=== PATIENT | male | born 1950 | race Caucasian/White ===

== ENCOUNTER 2016-07-09 13:31 | Outpatient (CLI) | payer MEDICARE, OTHER | END 2016-07-09 13:32 | disposition home or self-care (01) | DX: Z79.899 Other long term (current) drug therapy (principal); L20.82 Flexural eczema ==

== ENCOUNTER 2016-08-02 13:01 | Outpatient (CLI) | payer MEDICARE, OTHER | END 2016-08-02 13:02 | disposition home or self-care (01) | DX: L20.82 Flexural eczema (principal); Z79.899 Other long term (current) drug therapy ==

== ENCOUNTER 2016-08-30 13:19 | Outpatient (CLI) | payer MEDICARE, OTHER | END 2016-08-30 13:20 | disposition home or self-care (01) | DX: L20.82 Flexural eczema (principal); Z79.899 Other long term (current) drug therapy ==

== ENCOUNTER 2018-04-07 13:21 | Emergency (ER) | payer MEDICARE, OTHER ==
[2018-04-07 13:38] VITALS: BP 146/83
[2018-04-07] MEDS: TETANUS/DIPHTHERIA/PERTUSSIS 0.5 ML SYRINGE IM ONE (14:43)
--- NOTE | 2018-04-07 14:45 | ED Physician Documentation ---
PD HPI LOWER EXT INJURY - Stated complaint Stated Complaint: R FOOT LAC - Chief complaint Chief Complaint: Wound - History obtained from History obtained from: Patient - History of Present Illness PD HPI LOW EXT INJURY LOCATION: Right, Foot Type of injury: Puncture wound Where injury occurred: Home Timing - onset: Today - Additional information Additional information: The patient is a 68-year-old male who presents with a puncture wound in the plantar aspect of his right foot. He was repairing a wire fence for chickens, when he stepped on a cut and of the wire, which penetrated his running shoe and penetrated his foot. His last tetanus booster was more than 10 years ago, and he is concerned about tetanus given the [place] location of his injury. Review of Systems Constitutional: denies: Fever Respiratory: denies: Dyspnea Skin: reports: Other (Puncture wound.). denies: Rash Musculoskeletal: reports: Extremity pain (right foot.) Neurologic: denies: Focal weakness, Numbness PD PAST MEDICAL HISTORY - Past Medical History Past Medical History: Yes Neuro: None Endocrine/Autoimmune: None HEENT: None Derm: Other - Past Surgical History Past Surgical History: No Derm: Skin cancer surgery - Present Medications Home Medications: Ambulatory Orders Medication Instructions Recorded Confirmed No Known Home Medications 04/07/18 04/07/18 - Allergies Allergies/Adverse Reactions: Allergies Allergy/AdvReac Type Severity Reaction Status Date / Time mupirocin [From Bactroban] Allergy Rash Verified 04/07/18 13:38 - Social History Does the pt smoke?: Yes Smoking Status: Current every day smoker Does the pt drink ETOH?: Yes ETOH Use: Liquor Does the pt have substance abuse?: No Substance Use and Type: Marijuana - Immunizations Immunizations are current?: No Immunizations: TDAP >10years/unknown - POLST Patient has POLST: No PD ED PE NORMAL - Vitals Vital signs reviewed: Yes (Mild systolic hypertension initially.) - General General: Alert and oriented X 3, Well developed/nourished - HEENT HEENT: Atraumatic - Respiratory Respiratory: No respiratory distress - Derm Derm: No rash - Extremities Extremities: Other (There is a small puncture wound noted on the plantar aspect of the right foot, near the heel. There is no swelling, erythema, or debris visualized within the wound. Distal neurovascular is intact.) - Neuro Neuro: Alert and oriented X 3, No motor deficit, No sensory deficit Results - Vitals Vitals: Oxygen O2 Source Room air PD MEDICAL DECISION MAKING - ED course Complexity details: considered differential, d/w patient ED course: The patient's presentation is significant for a puncture wound to the plantar aspect of the right foot. There is no current evidence of infection. Treatment in the emergency department included administration of tetanus booster. The area of the wound was cleaned, and antibiotic ointment and Band-Aid were applied. I discussed with him the expected course of healing, symptomatic treatment and potentially worrisome signs or symptoms that should prompt reevaluation. Departure - Departure Disposition: 01 Home, Self Care Clinical Impression: Puncture wound of plantar aspect of foot Qualifiers: Encounter type: initial encounter Laterality: right Qualified Code(s): S91.331A - Puncture wound without foreign body, right foot, initial encounter Condition: Stable Instructions: ED Wound Puncture Foot Follow-Up: Mil Lowery PA-C [Physician No Access] - Comments: Keep the wound area clean. You can use Tylenol or ibuprofen if needed for pain. Follow-up with your primary physician, or return to the emergency department, if you develop any sign of infection, or otherwise worsening symptoms. Discharge Date/Time: 04/07/18 14:48
== END 2018-04-07 14:48 | disposition home or self-care (01) ==
LOC: ED 13:21
DX: S91.331A Puncture wound without foreign body, right foot, initial encounter (principal); W26.8XXA Contact with other sharp object(s), not elsewhere classified, initial encounter; Y93.H3 Activity, building and construction; Y92.009 Unspecified place in unspecified non-institutional (private) residence as the place of occurrence of the external cause; F17.200 Nicotine dependence, unspecified, uncomplicated
CPT/HCPCS: 90471; 99282; 99283

== ENCOUNTER 2020-10-25 16:02 | Outpatient (CLI) | payer MEDICARE | END 2020-10-25 16:03 | disposition short-term general hospital (02) | LOC: EMS 16:02 | DX: R07.9 Chest pain, unspecified (principal) | CPT/HCPCS: A0425; A0427 ==

== ENCOUNTER 2020-11-04 12:26 | Outpatient (CLI) | payer MEDICARE ==
[2020-11-04 16:10] LABS: ALBUMIN 4.2 g/dL (3.2-5.5); ALBUMIN/GLOBULIN RATIO 1.2 (1.0-2.2); BILIRUBIN,TOTAL 0.9 mg/dL (0.2-1.0); CALCIUM 9.2 mg/dL (8.5-10.3); CREATININE 1.4 mg/dL (0.6-1.2); POTASSIUM 4.5 mmol/L (3.5-5.0); TOTAL PROTEIN 7.7 g/dL (6.7-8.2)
== END 2020-11-04 12:27 | disposition home or self-care (01) ==
LOC: LAB.S 12:26
PROVIDERS: ATTEND Nurse Practitioner Family
DX: I21.3 ST elevation (STEMI) myocardial infarction of unspecified site (principal)
CPT/HCPCS: 36415; 80053

== ENCOUNTER 2020-11-26 14:11 | Outpatient (CLI) | payer MEDICARE ==
[2020-11-26 20:04] LABS: CALCIUM 9.1 mg/dL (8.5-10.3); CREATININE 1.6 mg/dL (0.6-1.2); POTASSIUM 3.8 mmol/L (3.5-5.0)
== END 2020-11-26 14:12 | disposition home or self-care (01) ==
LOC: LAB.S 14:11
PROVIDERS: ATTEND Nurse Practitioner
DX: I11.0 Hypertensive heart disease with heart failure (principal); I50.20 Unspecified systolic (congestive) heart failure; I25.10 Atherosclerotic heart disease of native coronary artery without angina pectoris
CPT/HCPCS: 36415; 80048; 83880

== ENCOUNTER 2020-12-08 11:29 | Emergency (ER) | payer MEDICARE ==
--- NOTE | 2020-12-08 12:20 | ED Physician Documentation ---
PD HPI MALE - Stated complaint Stated Complaint: MALE - Chief complaint Chief Complaint: Abd Pain - History obtained from History obtained from: Patient - History of Present Illness Timing - onset: How many days ago (5) Timing - duration: Days (5) Timing - details: Abrupt onset (while having forceful BM subsequent to constipation for several days.), Still present (worsening the past couple days, with feeling of inflammation, urgency for BM at rectum. Pain with attempt BM.) Associated symptoms: Other (feeling of urgency/pressure for BM, with just small amount of stools out.). No: Dysuria, Urinary frequency, Back pain Similar symptoms before: Has not had sx before Recently seen: Clinic (Walk In few days ago, with digital exam very tender, treated with some suppository and stool softener (little red pills). Told to follow up for colnoscopy. He called surgery office and next appt for follow up is not for couple weeks. Pain even worse today, so here.) Review of Systems Constitutional: denies: Fever, Chills Nose: denies: Rhinorrhea / runny nose, Congestion Throat: denies: Sore throat Cardiac: denies: Chest pain / pressure Respiratory: denies: Dyspnea, Cough GI: reports: Constipation. denies: Abdominal Pain, Nausea, Vomiting, Diarrhea : denies: Dysuria, Frequency Skin: denies: Rash Neurologic: denies: Generalized weakness, Near syncope PD PAST MEDICAL HISTORY - Past Medical History Cardiovascular: [place] (a month ago) Neuro: None Endocrine/Autoimmune: None GI: None HEENT: None Derm: Other - Past Surgical History Past Surgical History: No Derm: Skin cancer surgery - Present Medications Home Medications: Ambulatory Orders Medication Instructions Recorded Confirmed Amox/Clav 875/125 [Augmentin] 1 each PO Q12H #10 tablet 12/08/20 Mesalamine 1,000 mg RC DAILY #5 supp.rect 12/08/20 oxyCODONE [Roxicodone] 5 mg PO Q4-6H PRN #10 tablet 12/08/20 polyethylene glycoL 3350 [Miralax] 17 gm PO DAILY PRN #1 bottle 12/08/20 - Allergies Allergies/Adverse Reactions: Allergies Allergy/AdvReac Type Severity Reaction Status Date / Time mupirocin [From Bactroban] Allergy Rash Verified 12/08/20 11:41 - Social History Does the pt smoke?: Yes Smoking Status: Current every day smoker Does the pt drink ETOH?: Yes Does the pt have substance abuse?: No - Immunizations Immunizations are current?: No Immunizations: TDAP >10years/unknown - POLST Patient has POLST: No PD ED PE NORMAL - Vitals Vital signs reviewed: Yes - General General: Alert and oriented X 3, Well developed/nourished, Other (appears in pain and somewhat anxious. ) - Neck Neck: Supple, no meningeal sign, No adenopathy - Cardiac Cardiac: RRR, No murmur - Respiratory Respiratory: Clear bilaterally - Abdomen Abdomen: Normal bowel sounds, Soft, Non tender - Male Male : Deferred - Rectal Rectal: Other (normal external exam. Anoscope used to examine rectally and no hemorrhoids, no obvious fissures. There is inflammation and swelling in rectum. No mucous nor purulence. ) - Back Back: No CVA TTP - Derm Derm: Normal color, No rash Results - Vitals Vitals: Vital Signs - 24 hr 12/08/20 12/08/20 11:34 14:04 Temperature 36.5 C 37.0 C Heart Rate 88 74 Respiratory 16 12 Rate Blood Pressure 148/69 H 112/71 O2 Saturation 99 99 Oxygen O2 Source Room air - Labs Labs: Laboratory Tests 12/08/20 12/08/20 12/08/20 12:24 12:24 12:24 WBC 7.4 RBC 4.13 L Hgb 13.1 L Hct 38.2 L MCV 92.5 MCH 31.7 H MCHC 34.3 RDW 12.7 Plt Count 193 MPV 10.5 Neut # (Auto) 4.3 Lymph # (Auto) 1.2 L [place] # (Auto) 0.8 Eos # (Auto) 1.0 H Baso # (Auto) 0.0 Absolute Nucleated RBC 0.00 Nucleated RBC % 0.0 Manual Slide Review Indicated RBC Morph Micro Appear 1+ ANISOCYTOSIS ESR PT INR Sodium 135 Potassium 4.3 Chloride 102 Carbon Dioxide 23 Anion Gap 10.0 BUN 32 H Creatinine 1.5 H Estimated GFR (MDRD) 46 L Glucose 124 H Calcium 9.6 Blood Type B POSITIVE Antibody Screen NEGATIVE 12/08/20 12/08/20 12:24 12:30 WBC RBC Hgb Hct MCV MCH MCHC RDW Plt Count MPV Neut # (Auto) Lymph # (Auto) [place] # (Auto) Eos # (Auto) Baso # (Auto) Absolute Nucleated RBC Nucleated RBC % Manual Slide Review RBC Morph Micro Appear ESR 46 H PT 12.2 INR 1.1 Sodium Potassium Chloride Carbon Dioxide Anion Gap BUN Creatinine Estimated GFR (MDRD) Glucose Calcium Blood Type Antibody Screen - Rads (name of study) abd/pelvic CT Radiology: Prelim report reviewed (no local inflammastion, swelling, abscess. No acute process. ), See rad report Procedures - General procedure General procedure: Anoscopy in ER showing normal anal sphincter, no hemorrhoids. Marked tenderness. Swelling and inflammation circumferentially in rectal area. No exudate. No stool encountered to length of anoscope. PD MEDICAL DECISION MAKING - ED course Complexity details: re-evaluated patient (Givent he degree of tenderness at rectum, with some general swelling/redness, I presume some proctitis. No history of UC/IBD, so likely local process sequalae to anal fissure from constipation. ), considered differential (had onset pain with large BM, with some blood around stool. Continued with pain and worsening pain in rectum and with BMs. ), d/w patient Departure - Departure Disposition: 01 Home, Self Care Clinical Impression: Rectal pain, Acute proctitis Constipation Qualifiers: Constipation type: unspecified constipation type Qualified Code(s): K59.00 - Constipation, unspecified Condition: Stable Record reviewed to determine appropriate education?: Yes Follow-Up: CHASE TAVARES ARNP [Primary Care Provider] - Nico Jeffries MD [Provider Admit Priv/Credential] - Prescriptions: Amox/Clav 875/125 [Augmentin] 1 each PO Q12H #10 tablet Mesalamine 1,000 mg RC DAILY #5 supp.rect polyethylene glycoL 3350 [Miralax] 17 gm PO DAILY PRN #1 bottle PRN Reason: Constipation oxyCODONE [Roxicodone] 5 mg PO Q4-6H PRN #10 tablet PRN Reason: Pain Comments: Your CT scan did not show any local abscesses or masses or tumors. No signs of diverticulitis or colitis in the sigmoid or intestine. There was some stool still present in the sigmoid area. My view on endoscopy showed inflammation through the rectal tissue generally without any hemorrhoids or local ulcerations. We can presume this is either some inflammatory process or possibly local infection in the area given the degree of pain. You can treat this with anti-inflammatories in the area as a suppository (mesalamine). Also Augmentin antibiotic orally over the next several days. You can continue with the previous stool softener. Add MiraLAX powder in water 2-3 times daily for the next few days as well, to help soften the stool output more. Tylenol every 4-6 hours if needed for pain, or oxycodone if needed for worse pain. You can follow-up with general surgery for evaluation if not improved over the next few days, call for an appointment. Follow-up with your primary care or return to the ER if worsening.
[2020-12-08 12:30] LABS: BASOPHILS % (AUTO) 0.5 %; HCT - HEMATOCRIT 38.2 % (42.0-52.0); HGB - HEMOGLOBIN 13.1 g/dL (14.0-18.0); LYMPHOCYTES # (AUTO) 1.2 10^3/uL (1.5-3.5); MEAN CORPUSCULAR HEMOGLOBIN 31.7 pg (27.0-31.0); MEAN CORPUSCULAR HGB CONC 34.3 g/dL (32.0-36.0); MEAN CORPUSCULAR VOLUME 92.5 fL (80.0-94.0); MEAN PLATELET VOLUME 10.5 fL (7.4-11.4); MONOCYTES # (AUTO) 0.8 10^3/uL (0.0-1.0); MONOCYTES % (AUTO) 10.6 %; NEUTROPHILS # (AUTO) 4.3 10^3/uL (1.5-6.6); NEUTROPHILS % (AUTO) 58.6 %; PLT - PLATELET COUNT 193 10^3/uL (130-450); RED BLOOD COUNT 4.13 10^6/uL (4.70-6.10); RED CELL DISTRIBUTION WIDTH 12.7 % (12.0-15.0); WHITE BLOOD COUNT 7.4 x10^3/uL (4.8-10.8)
[2020-12-08 12:31] LABS: SLIDE REVIEW? Indicated
[2020-12-08 12:36] LABS: INR 1.1 (0.8-1.2); PT - PROTHROMBIN TIME 12.2 secs (9.9-12.6)
[2020-12-08 12:39] LABS: CALCIUM 9.6 mg/dL (8.5-10.3); CREATININE 1.5 mg/dL (0.6-1.2); POTASSIUM 4.3 mmol/L (3.5-5.0)
[2020-12-08 12:48] LABS: RBC MORPHOLOGY (MULTIPLE) 1+ ANISOCYTOSIS (NORMAL)
[2020-12-08] MEDS ORDERED: SODIUM CHLORIDE 0.9% 1,000 ML IV STA (12:52)
[2020-12-08] MEDS ORDERED: KETOROLAC 30 MG/ML VIAL IVP STA (12:52)
[2020-12-08] MEDS ORDERED: HYDROmorphone 1 MG/ML CARPUJECT IVP STA ×2 (12:52→14:26)
[2020-12-08] MEDS ORDERED: IOPAMIDOL-300 50 ML VIAL ONE (13:11)
--- NOTE | 2020-12-08 13:58 | CT Report ---
PROCEDURE: Abdomen/Pelvis W INDICATIONS: rectal pain for a week; feeling of swelling. CONTRAST: IV CONTRAST: Isovue 300 ml: 100 PO CONTRAST: *NO PO CONTRAST TECHNIQUE: After the administration of IV contrast, 5 mm thick sections acquired from the diaphragms to the symp hysis. 5 mm thick coronal and sagittal reformats were acquired. For radiation dose reduction, the f ollowing was used: automated exposure control, adjustment of mA and/or kV according to patient size. COMPARISON: Correlation is made with prior pelvis and lumbar spine CT examinations, and 01/24/2016 FINDINGS: Image quality: Excellent. ABDOMEN: Lung bases: Lung bases are clear. Heart size is normal. An apparent LAD stent can be seen. Solid organs: Liver and spleen are normal in size and enhancement. An accessory splenule is incide ntally noted along the hilum of the primary spleen. Gallbladder wall does not appear thickened. Biliary system is non dilated. Pancreas enhances normally. No adrenal nodules. Kidneys demonstrate normal size and enhancement, without hydronephrosis. At the superior pole of the left kidney, there is a simple appearing moderate in density cyst seen th at measures 2.3 cm. Peritoneum and bowel: In this patient with this given history, scrutiny is given to the rectum and i n the distal colon. No significant focal thickening or masses can be seen. Bowel loops demonstrate no rmal wall thickness and caliber. No free fluid or air. A normal appendix is incidentally noted. Di verticulosis can be seen, without linwood findings of active diverticulitis. Nodes and vessels: No retroperitoneal or mesenteric adenopathy by size criteria. Aorta and inferior vena cava are normal in size. Miscellaneous: No ventral hernias. PELVIS: Genitourinary: Bladder wall thickness is normal. Miscellaneous: A fat-containing left inguinal hernia is seen. No enlarged inguinal or pelvic lymph n odes are seen. Bones: No suspicious bony lesions. No vertebral body compression fractures. IMPRESSION: Normal-appearing rectum and distal colon. Given the patient's symptoms, please consider a dedicated lower endoscopy, when clinically appropriat e. Incidental note is made of: Apparent LAD stent Accessory splenule Simple appearing left renal cyst Normal appendix Diverticulosis is seen, yet without findings of active diverticulitis. Mild fat-containing left inguinal hernia Reviewed by: Abhishek Vazquez MD on 12/08/2020 12:57 PM AKDT Approved by: Abhishek Vazquez MD on 12/08/2020 12:57 PM FRANCES Station ID: [id number]
[2020-12-08] MEDS ORDERED: IOPAMIDOL-300 50 ML VIAL IVP ONE (14:38)
[2020-12-08] MEDS ORDERED: CHERRY SYRUP 10 ML UDC PO ONE (15:19)
[2020-12-08] MEDS ORDERED: DEXAMETHASONE 10 MG/ML VIAL PO STA (15:19)
[2020-12-08] MEDS ORDERED: GLYCERIN ADULT SUPP PR STA (15:19)
[2020-12-08] MEDS ORDERED: AMOX/CLAV 875 MG/125 MG TABLET PO STA (15:20)
[2020-12-08 17:15] VITALS: BP 105/63
== END 2020-12-08 16:57 | disposition home or self-care (01) ==
LOC: ED 11:29
DX: K62.89 Other specified diseases of anus and rectum (principal); F17.200 Nicotine dependence, unspecified, uncomplicated
CPT/HCPCS: 36415; 46600; 74177; 80048; 85025; 85610; 85651; 86850; 86900; 86901; 96374; 96375; 96376; 99284; A9270; J1170; Q9967

== ENCOUNTER 2020-12-10 15:10 | Outpatient (CLI) | payer MEDICARE ==
[2020-12-10 20:06] LABS: CALCIUM 9.2 mg/dL (8.5-10.3); CREATININE 1.6 mg/dL (0.6-1.2); POTASSIUM 4.3 mmol/L (3.5-5.0)
== END 2020-12-10 15:11 | disposition home or self-care (01) ==
LOC: LAB.S 15:10
PROVIDERS: ATTEND Nurse Practitioner
DX: I50.20 Unspecified systolic (congestive) heart failure (principal)
CPT/HCPCS: 36415; 80048

== ENCOUNTER 2021-02-13 10:32 | Outpatient (CLI) | payer MEDICARE ==
[2021-02-13 16:28] LABS: BUN - BLOOD UREA NITROGEN 18 mg/dL (6-20); CALCIUM 9.1 mg/dL (8.5-10.3); CARBON DIOXIDE - CO2 25 mmol/L (21-32); CHLORIDE 111 mmol/L (101-111); CHOL/HDL RATIO 3.1 (<5.0); CHOLESTEROL 133 mg/dL; CREATININE 1.2 mg/dL (0.6-1.2); GFR - MDRD 60 (>89); GLUCOSE 113 mg/dL (70-100); HDL CHOLESTEROL 43 mg/dL; LDL CHOLESTEROL,CALCULATED 76 mg/dL; LDL/HDL RATIO 1.8 (<3.6); SODIUM 143 mmol/L (135-145); TRIGLYCERIDES 68 mg/dL; VLDL CHOLESTEROL 14 mg/dL
== END 2021-02-13 10:33 | disposition home or self-care (01) ==
LOC: LAB.S 10:32
PROVIDERS: ATTEND Nurse Practitioner Family
DX: I21.3 ST elevation (STEMI) myocardial infarction of unspecified site (principal); I11.0 Hypertensive heart disease with heart failure; E78.5 Hyperlipidemia, unspecified; I50.20 Unspecified systolic (congestive) heart failure; I25.10 Atherosclerotic heart disease of native coronary artery without angina pectoris
CPT/HCPCS: 36415; 80048; 80061; 83721; 83880

== ENCOUNTER 2021-02-16 18:39 | Outpatient (CLI) | payer MEDICARE | END 2021-02-16 18:40 | disposition home or self-care (01) | LOC: COV 18:39 | PROVIDERS: ATTEND Internal Medicine Gastroenterology | DX: Z01.812 Encounter for preprocedural laboratory examination (principal); K62.89 Other specified diseases of anus and rectum; K60.2 Anal fissure, unspecified; Z20.822 Contact with and (suspected) exposure to COVID-19 ==

== ENCOUNTER 2021-02-19 14:04 | Outpatient (CLI) | payer MEDICARE | END 2021-02-19 14:05 | disposition EMS.NT | LOC: EMS 14:04 | DX: K62.89 Other specified diseases of anus and rectum (principal) ==

== ENCOUNTER 2021-02-19 15:12 | Emergency (ER) | payer MEDICARE ==
[2021-02-19 16:59] LABS: BASOPHILS % (AUTO) 0.5 %; EOSINOPHILS # (AUTO) 0.2 10^3/uL (0.0-0.7); EOSINOPHILS % (AUTO) 2.3 %; HCT - HEMATOCRIT 32.9 % (42.0-52.0); HGB - HEMOGLOBIN 10.9 g/dL (14.0-18.0); LYMPHOCYTES # (AUTO) 1.5 10^3/uL (1.5-3.5); LYMPHOCYTES % (AUTO) 23.3 %; MEAN CORPUSCULAR HGB CONC 33.1 g/dL (32.0-36.0); MEAN CORPUSCULAR VOLUME 96.5 fL (80.0-94.0); MEAN PLATELET VOLUME 10.7 fL (7.4-11.4); MONOCYTES # (AUTO) 0.7 10^3/uL (0.0-1.0); MONOCYTES % (AUTO) 11.6 %; NEUTROPHILS % (AUTO) 62.1 %; PLT - PLATELET COUNT 159 10^3/uL (130-450); RED BLOOD COUNT 3.41 10^6/uL (4.70-6.10); RED CELL DISTRIBUTION WIDTH 15.6 % (12.0-15.0); WHITE BLOOD COUNT 6.4 x10^3/uL (4.8-10.8)
[2021-02-19 17:03] LABS: INR 1.1 (0.8-1.2); PT - PROTHROMBIN TIME 12.1 secs (9.9-12.6)
[2021-02-19 17:09] LABS: ALBUMIN 4.3 g/dL (3.2-5.5); ALBUMIN/GLOBULIN RATIO 1.4 (1.0-2.2); BILIRUBIN,TOTAL 0.8 mg/dL (0.2-1.0); CALCIUM 9.4 mg/dL (8.5-10.3); CREATININE 1.2 mg/dL (0.6-1.2); POTASSIUM 4.3 mmol/L (3.5-5.0); TOTAL PROTEIN 7.3 g/dL (6.7-8.2)
[2021-02-19] MEDS ORDERED: MORPHINE 2 MG/ML CARPUJECT IVP STA (17:36)
[2021-02-19] MEDS ORDERED: SODIUM CHLORIDE 0.9% 1,000 ML IV STA (17:36)
[2021-02-19] MEDS ORDERED: ONDANSETRON 4 MG/2 ML VIAL IVP STA (17:36)
[2021-02-19] MEDS ORDERED: IOVERSOL 320 100 ML VIAL IVP ONE ×2 (17:46→21:28)
--- NOTE | 2021-02-19 18:31 | CT Report ---
PROCEDURE: Abdomen/Pelvis W INDICATIONS: Abd and rectal pain after sigmodoscopy yesterday CONTRAST: IV CONTRAST: Optiray 320 ml: 100 PO CONTRAST: *NO PO CONTRAST TECHNIQUE: After the administration of intravenous contrast, 5 mm thick sections acquired from the diaphragms to the symphysis. 5 mm thick coronal and sagittal reformats were acquired. For radiation dose reducti on, the following was used: automated exposure control, adjustment of mA and/or kV according to ema ent size. COMPARISON: 12/08/2020 FINDINGS: Image quality: Excellent. ABDOMEN: Lung bases: Lung bases are clear. Heart size is normal. Probable LAD stent is not included on today 's images. Eventration of the left hemidiaphragm. Solid organs: Liver and spleen are normal in size and enhancement. Gallbladder is unremarkable Awais iary system is non dilated. Pancreas enhances normally. No adrenal nodules. Kidneys demonstrate no rmal size and enhancement, without hydronephrosis. Peritoneum and bowel: Bowel loops demonstrate normal wall thickness and caliber. No free fluid or a ir. Nodes and vessels: No retroperitoneal or mesenteric adenopathy by size criteria. Aorta and inferior vena cava are normal in size. Miscellaneous: No ventral hernias. PELVIS: Genitourinary: Bladder wall thickness is normal. Miscellaneous: No inguinal hernias or adenopathy. Bones: No suspicious bony lesions. No vertebral body compression fractures. Lumbar degenerative ch jalen. Severe canal stenosis at L3-L4. IMPRESSION: 1. No evidence of acute abdominal process. No free air post sigmoidoscopy. 2. Incidental note made of severe canal stenosis at L3-L4. Reviewed by: Siddhartha Roberts MD on 02/19/2021 6:30 PM PDT Approved by: Siddhartha Roberts MD on 02/19/2021 6:30 PM PDT Station ID: [id number]
--- NOTE | 2021-02-19 19:38 | ED Physician Documentation ---
PD HPI GI BLEED - Stated complaint Stated Complaint: RECTAL PX - Chief complaint Chief Complaint: Abd Pain - History obtained from History obtained from: Patient - Additional information Additional information: Patient is a 71-year-old male presenting to the emergency department with rectal pain. Reports rectal pain ongoing x3 months. States has been seen by primary care and gastroenterology for this issue. Yesterday had sigmoidoscopy done which was generally benign. Reports increasing pain since the procedure.States pain is exacerbated by passage of stool.Ports that he took Percocet prior to arrival with minimal relief. Review of Systems Constitutional: denies: Fever, Chills Eyes: denies: Loss of vision Ears: denies: Loss of hearing Cardiac: denies: Chest pain / pressure Respiratory: denies: Dyspnea GI: reports: Other (Rectal pain) : denies: Dysuria Skin: denies: Rash Musculoskeletal: denies: Neck pain Neurologic: denies: Generalized weakness Psychiatric: denies: Depressed Endocrine: denies: Polydypsia Immunocompromised: denies: Immunocompromised PD PAST MEDICAL HISTORY - Past Medical History Past Medical History: Yes Cardiovascular: [place] Neuro: None Endocrine/Autoimmune: None GI: None HEENT: None Derm: Other - Past Surgical History Past Surgical History: No Derm: Skin cancer surgery - Present Medications Home Medications: Ambulatory Orders Medication Instructions Recorded Confirmed Amox/Clav 875/125 [Augmentin] 1 each PO Q12H #10 tablet 12/08/20 Mesalamine 1,000 mg RC DAILY #5 supp.rect 12/08/20 oxyCODONE [Roxicodone] 5 mg PO Q4-6H PRN #10 tablet 12/08/20 polyethylene glycoL 3350 [Miralax] 17 gm PO DAILY PRN #1 bottle 12/08/20 - Allergies Allergies/Adverse Reactions: Allergies Allergy/AdvReac Type Severity Reaction Status Date / Time No Known Drug Allergies Allergy Verified 02/19/21 15:18 - Social History Does the pt smoke?: Yes Smoking Status: Current every day smoker Does the pt drink ETOH?: Yes Does the pt have substance abuse?: No - Immunizations Immunizations are current?: No Immunizations: TDAP >10years/unknown - POLST Patient has POLST: No PD ED PE NORMAL - General General: Alert and oriented X 3 - HEENT HEENT: Atraumatic - Neck Neck: Supple, no meningeal sign - Cardiac Cardiac: RRR - Respiratory Respiratory: No respiratory distress - Abdomen Abdomen: Normal bowel sounds, Non tender, Non distended - Male Male : Deferred PD ED PE EXPANDED - Rectal Rectal: Heme Occult Pos - QC +, Hemorrhoid, Normal Tone, Urban Design Consultant present, Other (Rectum is exquisitely tender to any manipulation). No: Fissure Results - Vitals Vitals: Vital Signs - 24 hr 02/19/21 15:18 Temperature 36 C L Heart Rate 86 Respiratory 22 Rate Blood Pressure 129/75 O2 Saturation 95 Oxygen O2 Source Room air - Labs Labs: Microbiology 02/19/21 19:16 Occult Blood - Final Stool Laboratory Tests 02/19/21 02/19/21 02/19/21 16:51 16:51 16:51 WBC 6.4 RBC 3.41 L Hgb 10.9 L Hct 32.9 L MCV 96.5 H MCH 32.0 H MCHC 33.1 RDW 15.6 H Plt Count 159 MPV 10.7 Neut # (Auto) 4.0 Lymph # (Auto) 1.5 [place] # (Auto) 0.7 Eos # (Auto) 0.2 Baso # (Auto) 0.0 Absolute Nucleated RBC 0.00 Nucleated RBC % 0.0 PT 12.1 INR 1.1 Sodium 142 Potassium 4.3 Chloride 109 Carbon Dioxide 27 Anion Gap 6.0 BUN 20 Creatinine 1.2 Estimated GFR (MDRD) 59 L Glucose 113 H Calcium 9.4 Total Bilirubin 0.8 AST 35 ALT 52 Alkaline Phosphatase 106 Total Protein 7.3 Albumin 4.3 Globulin 3.0 Albumin/Globulin Ratio 1.4 Lipase 35 PD MEDICAL DECISION MAKING - ED course Complexity details: reviewed results, d/w patient ED course: Patient is 71-year-old male presenting to the emergency department with complaint of 3 months of persistent rectal pain. Patient has been seen in this facility before for similar symptoms in the past. Additionally has been following with gastroenterology and had sigmoidoscopy performed yesterday. Patient had some distress on arrival to the emergency department and was given dose of pain medication. His physical exam however was generally reassuring. Given his recent instrumentation I did elect to obtain labs which demonstrated a stable low level anemia. CT scan of his abdomen pelvis was benign. Rectal exam performed with assistant professor of life sciences present demonstrated a relatively benign exam with a single nonthrombosed external hemorrhoid as well as exquisite tenderness to any rectal manipulation. Guaiac was weakly positive however this is likely secondary to his recent sigmoidoscopy. I had a long detailed discussion with the patient about all of these findings. At this time I will discharge for continued follow- up with primary care and gastroenterology as needed. Otherwise clear return precautions and follow-up instructions were given prior to discharge. Departure - Departure Disposition: 01 Home, Self Care Clinical Impression: Rectal pain, chronic Condition: Good Instructions: Abdominal Pain Comments: Thank you for allowing us to care for you today at [facility] All the tests performed in the emergency department today were very reassuring. I am sorry that you are having this persistent pain. I would like you to follow- up with your primary care doctor as well as with your primer supervisor as soon as possible. If it anytime you have any new or worsening symptoms or further concerns you are always welcome to return to the emergency department.
[2021-02-19 20:12] VITALS: BP 114/83
== END 2021-02-19 20:14 | disposition home or self-care (01) ==
LOC: ED 15:12
DX: K62.89 Other specified diseases of anus and rectum (principal); G89.29 Other chronic pain; F17.200 Nicotine dependence, unspecified, uncomplicated
CPT/HCPCS: 36415; 74177; 80053; 82272; 83690; 85025; 85610; 96374; 99282; 99284; Q9967

== ENCOUNTER 2021-02-25 15:41 | Outpatient (CLI) | payer MEDICARE ==
[2021-02-25] MEDS ORDERED: GADOBUTROL 10 MMOL/10 ML VIAL ONE (15:57)
--- NOTE | 2021-02-25 17:58 | MRI Report ---
PROCEDURE: Pelvis W/WO INDICATIONS: ANAL OR RECTAL PAIN CONTRAST: IV CONTRAST: Gadavist ml: 8.6 TECHNIQUE: Coronal ultra fast SE, sagittal breath-hold T2 FSE; axial T1 FSE with and without fat saturation thro ugh the pelvis. Optional long- and short-axis uterine nonbreath-hold T2 FSE through the uterus. Sag ittal or axial dynamic ultra fast GE during administration of contrast. Post-contrast axial or coron al ultra fast GE / 2-D spoiled GE with fat saturation from the iliac crests to the symphysis. Option al diffusion weighted imaging and ADC may be performed. COMPARISON: CT abdomen and pelvis dated 02/19/2021 FINDINGS: Image quality: Diagnostic Urinary system: Bladder wall is normal in thickness. Distal ureters are non distended. Urethra candie ears normal in morphology. No abnormal enhancement identified. Nodes and vessels: No pelvic or inguinal adenopathy by size criteria. Iliac vessels are normal in s ize. Bowel and peritoneum: No pathologic free pelvic fluid. Inferior colon and small bowel loops are nor mal in caliber. Soft tissues: No inguinal hernias. No findings of pelvic floor incompetence in the absence of provo cation. No pelvic adenopathy. No suspicious signal abnormalities or abnormal enhancement noted in th e region of the distal sigmoid colon and rectum or anus. No inflammatory changes noted in the subcuta neous soft tissues surrounding the rectum and anus. No abnormal fluid collection seen. Bones: Marrow demonstrates normal overall signal. Degenerative changes of the bilateral hips with s ubchondral cystic changes over the superior acetabulum on the left. IMPRESSION: MRI pelvis without acute abnormalities. Specifically, no abnormalities identified in the region of th e rectum/anus to explain patient's rectal/anal pain. Reviewed by: Lui Coy MD on 02/25/2021 5:57 PM PST Approved by: Lui Coy MD on 02/25/2021 5:57 PM PST Station ID: [id number]
[2021-02-26] MEDS ORDERED: GADOBUTROL 10 MMOL/10 ML VIAL IVP ONE (08:10)
== END 2021-02-25 15:42 | disposition home or self-care (01) ==
LOC: DI 15:41
PROVIDERS: ATTEND Internal Medicine Gastroenterology
DX: K62.89 Other specified diseases of anus and rectum (principal); K60.2 Anal fissure, unspecified
CPT/HCPCS: 72197; A9585

== ENCOUNTER 2021-03-31 16:30 | Outpatient (CLI) | payer MEDICARE ==
[2021-03-31 20:29] LABS: CALCIUM 9.3 mg/dL (8.5-10.3); CREATININE 1.2 mg/dL (0.6-1.2); POTASSIUM 4.1 mmol/L (3.5-5.0)
== END 2021-03-31 16:31 | disposition home or self-care (01) ==
LOC: LAB.S 16:30
PROVIDERS: ATTEND Internal Medicine Interventional Cardiology
DX: I50.20 Unspecified systolic (congestive) heart failure (principal); I25.10 Atherosclerotic heart disease of native coronary artery without angina pectoris
CPT/HCPCS: 36415; 80048

== ENCOUNTER 2021-06-05 14:16 | Emergency (ER) | payer MEDICARE ==
[2021-06-05 14:53] LABS: BASOPHILS % (AUTO) 0.4 %; EOSINOPHILS % (AUTO) 0.4 %; HCT - HEMATOCRIT 40.7 % (42.0-52.0); HGB - HEMOGLOBIN 13.9 g/dL (14.0-18.0); LYMPHOCYTES % (AUTO) 22.4 %; MEAN CORPUSCULAR HEMOGLOBIN 31.2 pg (27.0-31.0); MEAN CORPUSCULAR HGB CONC 34.2 g/dL (32.0-36.0); MEAN CORPUSCULAR VOLUME 91.3 fL (80.0-94.0); MEAN PLATELET VOLUME 10.3 fL (7.4-11.4); MONOCYTES # (AUTO) 0.7 10^3/uL (0.0-1.0); MONOCYTES % (AUTO) 7.9 %; NEUTROPHILS # (AUTO) 6.2 10^3/uL (1.5-6.6); NEUTROPHILS % (AUTO) 68.8 %; PLT - PLATELET COUNT 183 10^3/uL (130-450); RED BLOOD COUNT 4.46 10^6/uL (4.70-6.10); RED CELL DISTRIBUTION WIDTH 13.5 % (12.0-15.0)
[2021-06-05 14:59] LABS: INR 1.1 (0.8-1.2); PT - PROTHROMBIN TIME 12.6 secs (9.9-12.6)
[2021-06-05 15:07] LABS: ALBUMIN 4.6 g/dL (3.2-5.5); ALBUMIN/GLOBULIN RATIO 1.4 (1.0-2.2); CALCIUM 9.5 mg/dL (8.5-10.3); CREATININE 1.1 mg/dL (0.6-1.2); PARTIAL THROMBOPLASTIN TIME 30.6 secs (24.9-33.3); POTASSIUM 3.9 mmol/L (3.5-5.0); TOTAL PROTEIN 7.9 g/dL (6.7-8.2)
--- NOTE | 2021-06-05 15:20 | ED Physician Documentation ---
History of Present Illness - Stated complaint Stated Complaint: RECTAL PX AND BLEED - Chief complaint Chief Complaint: Abd Pain - History obtained from History obtained from: Patient - History of Present Illness Timing: Today Pain level max: 0 Pain level now: 0 - Additonal information Additional information: Patient is a 71-year-old male who presents to the emergency department complaining of rectal bleeding. He states that he has been constipated. He had a anal fissure that caused the bleeding last year. He had a rectal sphincter surgery in March. He states he has had intermittent bleeding since that time. He states that today he was constipated and there was bright red blood per rectum. No abdominal pain. No vomiting. No current bleeding. Review of Systems Constitutional: denies: Fever GI: denies: Vomiting Skin: denies: Rash Musculoskeletal: denies: Neck pain, Back pain Neurologic: denies: Headache PD PAST MEDICAL HISTORY - Past Medical History Past Medical History: Yes Cardiovascular: [place] Neuro: None Endocrine/Autoimmune: None GI: None HEENT: None Derm: Other - Past Surgical History Past Surgical History: No Derm: Skin cancer surgery - Present Medications Home Medications: Ambulatory Orders Medication Instructions Recorded Confirmed Amox/Clav 875/125 [Augmentin] 1 each PO Q12H #10 tablet 12/08/20 Mesalamine 1,000 mg RC DAILY #5 supp.rect 12/08/20 oxyCODONE [Roxicodone] 5 mg PO Q4-6H PRN #10 tablet 12/08/20 polyethylene glycoL 3350 [Miralax] 17 gm PO DAILY PRN #1 bottle 12/08/20 Nitroglycerin [Rectiv] 1 applic RC BID #30 gm 06/05/21 - Allergies Allergies/Adverse Reactions: Allergies Allergy/AdvReac Type Severity Reaction Status Date / Time Sulfa (Sulfonamide Allergy Unknown Verified 06/05/21 14:20 Antibiotics) - Social History Does the pt smoke?: Yes Smoking Status: Current every day smoker Does the pt drink ETOH?: Yes Does the pt have substance abuse?: No - Immunizations Immunizations are current?: No Immunizations: TDAP >10years/unknown - POLST Patient has POLST: No PD ED PE NORMAL - Vitals Vital signs reviewed: Yes - General General: Alert and oriented X 3, No acute distress - HEENT HEENT: Moist mucous membranes - Neck Neck: Supple, no meningeal sign - Cardiac Cardiac: RRR - Respiratory Respiratory: No respiratory distress, Clear bilaterally - Abdomen Abdomen: Soft, Non tender, Non distended - Rectal Rectal: Other (Patient refused internal rectal exam, he states that they have been painful in the past. There is no active bleeding currently. Normal external exam) - Derm Derm: Warm and dry - Neuro Neuro: Alert and oriented X 3 - Psych Psych: Normal mood, Normal affect Results - Vitals Vitals: Vital Signs - 24 hr 06/05/21 06/05/21 06/05/21 14:20 14:30 16:03 Temperature 36.5 C 36.5 C 37.1 C Heart Rate 92 92 79 Respiratory 22 22 18 Rate Blood Pressure 135/64 H 135/64 H 116/72 O2 Saturation 100 100 99 Oxygen O2 Source Room air - Labs Labs: Laboratory Tests 06/05/21 06/05/21 06/05/21 14:48 14:48 14:48 WBC 9.0 RBC 4.46 L Hgb 13.9 L Hct 40.7 L MCV 91.3 MCH 31.2 H MCHC 34.2 RDW 13.5 Plt Count 183 MPV 10.3 Neut # (Auto) 6.2 Lymph # (Auto) 2.0 [place] # (Auto) 0.7 Eos # (Auto) 0.0 Baso # (Auto) 0.0 Absolute Nucleated RBC 0.00 Nucleated RBC % 0.0 PT 12.6 INR 1.1 APTT 30.6 Sodium 138 Potassium 3.9 Chloride 106 Carbon Dioxide 24 Anion Gap 8.0 BUN 23 H Creatinine 1.1 Estimated GFR (MDRD) 66 L Glucose 104 H Calcium 9.5 Total Bilirubin 1.0 AST 35 ALT 44 Alkaline Phosphatase 89 Total Protein 7.9 Albumin 4.6 Globulin 3.3 Albumin/Globulin Ratio 1.4 Lipase 42 Urine Color Urine Clarity Urine pH Ur Specific [place] Urine Protein Urine Glucose (UA) Urine Ketones Urine Occult Blood Urine Nitrite Urine Bilirubin Urine Urobilinogen Ur Leukocyte Esterase Ur Microscopic Review Urine Culture Comments 06/05/21 15:00 WBC RBC Hgb Hct MCV MCH MCHC RDW Plt Count MPV Neut # (Auto) Lymph # (Auto) [place] # (Auto) Eos # (Auto) Baso # (Auto) Absolute Nucleated RBC Nucleated RBC % PT INR APTT Sodium Potassium Chloride Carbon Dioxide Anion Gap BUN Creatinine Estimated GFR (MDRD) Glucose Calcium Total Bilirubin AST ALT Alkaline Phosphatase Total Protein Albumin Globulin Albumin/Globulin Ratio Lipase Urine Color YELLOW Urine Clarity CLEAR Urine pH 5.5 Ur Specific [place] 1.025 Urine Protein NEGATIVE Urine Glucose (UA) >=1000 H Urine Ketones NEGATIVE Urine Occult Blood NEGATIVE Urine Nitrite NEGATIVE Urine Bilirubin NEGATIVE Urine Urobilinogen 0.2 (NORMAL) Ur Leukocyte Esterase NEGATIVE Ur Microscopic Review NOT INDICATED Urine Culture Comments NOT INDICATED PD MEDICAL DECISION MAKING - ED course Complexity details: reviewed results, re-evaluated patient, considered differential, d/w patient ED course: No significant lab abnormalities. Patient with a small amount of bright red blood per rectum earlier today with constipation. His doctor had discussed with him topical nitroglycerin, he is interested in trying this now. No indication for further work-up at this time. He does not want any medication for constipation. Patient counseled regarding signs and symptoms for which I believe and urgent re-evaluation would be necessary. Patient with good understanding of and agreement to plan and is comfortable going home at this time This document was made in part using voice recognition software. While efforts are made to proofread this document, sound alike and grammatical errors may occur. Departure - Departure Disposition: 01 Home, Self Care Clinical Impression: Rectal pain, BRBPR (bright red blood per rectum) Condition: Good Instructions: ED Hematochezia Stable Follow-Up: CHASE TAVARES ARNP [Primary Care Provider] - Within 1 week Prescriptions: Nitroglycerin [Rectiv] 1 applic RC BID #30 gm Comments: We will trial you on a small amount of topical nitroglycerin and see if this relieves the pain and spasming for you from your rectal fissure. Use the smallest amount possible to obtain relief. Please follow-up with your doctor for further care. Return if you worsen. Your prescription was sent to [facility] in [place]. Discharge Date/Time: 06/05/21 16:11
[2021-06-05 15:21] LABS: BILIRUBIN,URINE NEGATIVE (NEGATIVE); GLUCOSE, URINE (UA) >=1000 mg/dL (NEGATIVE); KETONES,URINE (UA) NEGATIVE (NEGATIVE); LEUKOCYTE ESTERASE, URINE NEGATIVE (NEGATIVE); NITRITE,URINE NEGATIVE (NEGATIVE); OCCULT BLOOD,URINE NEGATIVE (NEGATIVE); PH,URINE 5.5 PH (5.0-7.5); PROTEIN,URINE NEGATIVE (NEGATIVE); UROBILINOGEN,URINE 0.2 (NORMAL) E.U./dL (NORMAL)
[2021-06-05 15:22] LABS: CLARITY,URINE CLEAR (CLEAR)
[2021-06-05 16:04] VITALS: BP 116/72
== END 2021-06-05 16:11 | disposition home or self-care (01) ==
LOC: ED 14:16
DX: K62.5 Hemorrhage of anus and rectum (principal); K59.00 Constipation, unspecified; F17.200 Nicotine dependence, unspecified, uncomplicated
CPT/HCPCS: 36415; 80053; 81001; 81003; 83690; 85025; 85610; 85730; 87086; 99282; 99283

== ENCOUNTER 2021-08-10 05:59 | Outpatient (CLI) | payer MEDICARE | END 2021-08-10 06:00 | disposition EMS.NT | LOC: EMS 05:59 | DX: R45.82 Worries (principal) ==